=== PATIENT | male | born 1990 | race Caucasian/White ===

== ENCOUNTER → 2016-05-15 | Outpatient (CLI) | payer MEDICARE, OTHER ==
[~2016-05-15] MED LIST: /DULO30CA; /HALO5TAB OR; ABIL10TA OR; AMBI5TAB; DEPA500T OR; DEPA500T2; DEPA500T2 OR; DULO20CA; INVE3TAB2; INVE3TAB2 OR; No Historical Meds; OXYC15TA50; OXYC40TA19; Oxycontin; PERC5TAB8; PROZAC; RISP2TAB12; TOPI50TA; VICO5TAB; XANA2TAB2
[2016-05-15 10:43] LABS: BASO % 0.6 % (0.0-1.0); EOS # 0.4 K/mm3 (0.0-0.50); EOS % 7.3 % (0.0-3.0); LYMPH # 1.9 K/mm3 (1.5-6.5); LYMPH % 28.5 % (24.0-44.0); MEAN CORPUSCULAR HEMOGLOBIN 31.1 pg (27.0-33.0); MEAN CORPUSCULAR HGB CONC 34.6 g/dl (32.0-36.5); MONO # 0.5 K/mm3 (0.0-0.8); MONO % 8.3 % (0.0-5.0); NEUTROPHILS # 3.2 K/mm3 (1.8-7.7); NEUTROPHILS % 52.8 % (36.0-66.0); RED CELL DISTRIBUTION WIDTH 11.5 % (11.5-14.5)
[2016-05-15 11:20] LABS: ALBUMIN 4.2 GM/DL (3.2-5.2); ALBUMIN/GLOBULIN RATIO 1.35 (1.00-1.93); ALKALINE PHOSPHATASE 59 U/L (45-117); ALT/SGPT 27 U/L (12-78); ANION GAP 8 MEQ/L (8-16); AST/SGOT 19 U/L (15-37); BILIRUBIN,TOTAL 0.9 MG/DL (0.2-1.0); BLOOD UREA NITROGEN 12 MG/DL (7-18); CALCIUM LEVEL 9.1 MG/DL (8.5-10.1); CARBON DIOXIDE LEVEL 31 MEQ/L (21-32); CHLORIDE LEVEL 103 MEQ/L (98-107); CHOLESTEROL LEVEL 208 MG/DL (<200); CREATININE FOR GFR 0.91 MG/DL (0.70-1.30); GLOMERULAR FILTRATION RATE > 60.0 (>60); GLUCOSE, FASTING 86 MG/DL (70-105); POTASSIUM SERUM 4.2 MEQ/L (3.5-5.1); SODIUM LEVEL 142 MEQ/L (136-145); TOTAL PROTEIN 7.3 GM/DL (6.4-8.2); TRIGLYCERIDES LEVEL 68 MG/DL (<150)
== END ==
LOC: M LAB 10:01
PROVIDERS: ATTEND Nurse Practitioner Adult Health
DX: E55.9 Vitamin D deficiency, unspecified (principal); E78.1 Pure hyperglyceridemia; F32.9 Major depressive disorder, single episode, unspecified; Z79.899 Other long term (current) drug therapy

== ENCOUNTER 2016-07-03 19:31 | Inpatient (IN) | payer MEDICARE ==
[~2016-07-03] VITALS: Ht 172.7 cm; Wt 98.4 kg
[2016-07-03] MEDS ORDERED: NS 1,000 ML IV ONE (19:45)
[2016-07-03 19:59] LABS: BASO # 0.1 K/mm3 (0.0-0.2); BASO % 0.9 % (0.0-1.0); EOS # 0.3 K/mm3 (0.0-0.50); EOS % 4.8 % (0.0-3.0); LARGE UNSTAINED CELL # 0.2 K/mm3 (0.0-0.4); LARGE UNSTAINED CELL % 2.4 % (0.0-4.0); LYMPH # 2.3 K/mm3 (1.5-6.5); LYMPH % 31.6 % (24.0-44.0); MEAN CORPUSCULAR HGB CONC 34.5 g/dl (32.0-36.5); MEAN CORPUSCULAR VOLUME 92.7 fl (80.0-96.0); MONO # 0.6 K/mm3 (0.0-0.8); MONO % 8.2 % (0.0-5.0); NEUTROPHILS # 3.7 K/mm3 (1.8-7.7); NEUTROPHILS % 52.1 % (36.0-66.0); PLATELET COUNT, AUTOMATED 221 k/mm3 (150-450); RED CELL DISTRIBUTION WIDTH 11.3 % (11.5-14.5); WHITE BLOOD COUNT 7.2 K/mm3 (4.0-10.0)
[2016-07-03] MEDS ORDERED: LORazepam 2 MG/ML VIAL (J2060) IM ONE (20:00)
[2016-07-03] MEDS ORDERED: diphenhydrAMINE INJ 50MG/ML VIAL (J1200) IM ONE (20:00)
[2016-07-03] MEDS ORDERED: HALOPERIDOL 5 MG/ML VIAL (J1630) IM ONE (20:00)
[2016-07-03 20:22] LABS: ALBUMIN 4.2 GM/DL (3.2-5.2); ALBUMIN/GLOBULIN RATIO 1.24 (1.00-1.93); ALKALINE PHOSPHATASE 68 U/L (45-117); ALT/SGPT 36 U/L (12-78); ANION GAP 7 MEQ/L (8-16); AST/SGOT 26 U/L (15-37); BILIRUBIN,DIRECT < 0.1 MG/DL (0.0-0.2); BILIRUBIN,TOTAL 0.5 MG/DL (0.2-1.0); BLOOD UREA NITROGEN 15 MG/DL (7-18); CALCIUM LEVEL 8.8 MG/DL (8.5-10.1); CARBON DIOXIDE LEVEL 28 MEQ/L (21-32); CHLORIDE LEVEL 102 MEQ/L (98-107); CREATININE FOR GFR 1.25 MG/DL (0.70-1.30); GLOMERULAR FILTRATION RATE > 60.0 (>60); GLUCOSE, FASTING 90 MG/DL (70-105); POTASSIUM SERUM 4.2 MEQ/L (3.5-5.1); SODIUM LEVEL 137 MEQ/L (136-145); TOTAL PROTEIN 7.6 GM/DL (6.4-8.2)
[2016-07-03 20:28] LABS: OSMOLALITY SERUM 288 MOSM/KG (275-295)
[2016-07-03 20:34] LABS: ABG BASE EXCESS 1.4 (-2.0-2.0); ABG HCO3 25.2 MEQ/L (22.0-26.0); ABG PARTIAL PRESSURE CO2 37.5 mmHg (35.0-45.0); ABG STANDARD HCO3 25.7 MEQ/L (22.0-26.0); ABG TOTAL CO2 26.4 MEQ/L (22.0-29.0); ABG pH (ARTERIAL) 7.446 UNITS (7.350-7.450)
[2016-07-03 21:18] LABS: METHADONE URINE NEGATIVE (NEGATIVE)
--- NOTE | 2016-07-03 21:30 | REPUSA ---
CT of the head Clinical history: ltered mental status. Comparison: 07/10/2015. Technique: Multiple axial CT images were obtained through the head without administration of contrast . Findings: The ventricles and sulci are symmetric bilaterally. There is no evidence of acute hemorrhag e or infarct. There is no midline shift, mass effect, or extra-axial fluid collection. The osseous st ructures are unremarkable. The visualized paranasal sinuses and mastoid air cells are clear. Impression: Negative study.
[2016-07-04] MEDS: NS 1,000 ML IV SCH ×2 (02:35→11:23)
[2016-07-04] MEDS ORDERED: ONDANSETRON 4 MG TAB (S0181) PO PRN (02:45)
[2016-07-04 05:31] LABS: BASO % 0.8 % (0.0-1.0); EOS # 0.4 K/mm3 (0.0-0.50); EOS % 6.8 % (0.0-3.0); LARGE UNSTAINED CELL # 0.2 K/mm3 (0.0-0.4); LARGE UNSTAINED CELL % 2.5 % (0.0-4.0); LYMPH % 31.7 % (24.0-44.0); MEAN CORPUSCULAR HEMOGLOBIN 31.5 pg (27.0-33.0); MEAN CORPUSCULAR HGB CONC 33.6 g/dl (32.0-36.5); MEAN CORPUSCULAR VOLUME 93.9 fl (80.0-96.0); MONO # 0.4 K/mm3 (0.0-0.8); MONO % 6.1 % (0.0-5.0); NEUTROPHILS # 3.3 K/mm3 (1.8-7.7); NEUTROPHILS % 52.1 % (36.0-66.0); PLATELET COUNT, AUTOMATED 190 k/mm3 (150-450); RED CELL DISTRIBUTION WIDTH 11.4 % (11.5-14.5); WHITE BLOOD COUNT 6.4 K/mm3 (4.0-10.0)
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
[2016-07-04 06:26] LABS: ALBUMIN 3.5 GM/DL (3.2-5.2); ALBUMIN/GLOBULIN RATIO 1.21 (1.00-1.93); ALKALINE PHOSPHATASE 54 U/L (45-117); ALT/SGPT 35 U/L (12-78); ANION GAP 9 MEQ/L (8-16); AST/SGOT 48 U/L (15-37); BLOOD UREA NITROGEN 13 MG/DL (7-18); CALCIUM LEVEL 8.1 MG/DL (8.5-10.1); CARBON DIOXIDE LEVEL 26 MEQ/L (21-32); CHLORIDE LEVEL 105 MEQ/L (98-107); CREATININE FOR GFR 0.95 MG/DL (0.70-1.30); GLOMERULAR FILTRATION RATE > 60.0 (>60); GLUCOSE, FASTING 96 MG/DL (70-105); MAGNESIUM LEVEL 2.3 MG/DL (1.8-2.4); POTASSIUM SERUM 3.8 MEQ/L (3.5-5.1); SODIUM LEVEL 140 MEQ/L (136-145); TOTAL PROTEIN 6.4 GM/DL (6.4-8.2)
[2016-07-04 08:00] VITALS: BP 124/56
[2016-07-04] MEDS ORDERED: ENOXAPARIN 40 MG/0.4 ML SYRINGE (J1650) SC SCH (09:00)
[2016-07-04 10:00] VITALS: BP 113/71
[2016-07-04] MEDS ORDERED: LORazepam 2 MG/ML VIAL (J2060) IM PRN (11:30)
[2016-07-04] MEDS ORDERED: diphenhydrAMINE INJ 50MG/ML VIAL (J1200) IM PRN (11:30)
[2016-07-04] MEDS ORDERED: HALOPERIDOL 5 MG/ML VIAL (J1630) IM PRN (11:30)
--- NOTE | 2016-07-04 12:56 | REP ---
PORTABLE CHEST: HISTORY: Altered mental status. COMPARISON: 11/27/2005. The technique utilized in obtaining the radiograph has magnified the cardiac silhouette and accentuated the interstitial markings. The superior mediastinal structures are midline. The cardiac silhouette is unremarkable in size, shape, and position. The diaphragmatic surfaces of the lungs are regular, and the costophrenic angles are clear. The pulmonary brunner are clear. The imaged osseous structures are intact. IMPRESSION: There is no acute cardiopulmonary disease. Signed by Reginald Rai DO 07/04/2016 01:32 P
[2016-07-04] MEDS ORDERED: ZIPR40CA11 PO (13:18)
[2016-07-04] MEDS ORDERED: BANO25CA PO (13:19)
--- NOTE | 2016-07-04 13:55 | ECGEPIP ---
Stationary ECG Study [facility] Test Date: 2016-07-04 Pat Name: EMILY HUFF Department: Room: [place] [address] Gender: M Tableau Report Developer: : 1990 Requested By: SUDEEP MAHMOOD Order Number: [id number] Reading MD: Geronimo Philip Measurements Intervals [place] Rate: 54 P: 42 [place]: 177 QRS: 37 QRSD: 96 T: 30 QT: 394 QTc: 374 Interpretive Statements SINUS BRADYCARDIA NO PRIOR Electronically Signed On 07-04-2016 13:55:37 EDT by Geronimo Philip
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
--- NOTE | 2016-07-05 14:40 | ECGEPIP ---
Stationary ECG Study [facility] Test Date: 2016-07-03 Pat Name: EMILY HUFF Department: Room: [place] [address] Gender: M C++ Professor: DORA : 1990 Requested By: BONNIE Hurt Order Number: [id number] Reading MD: Yaneth Harrell Measurements Intervals [place] Rate: 95 P: 60 DE: 158 QRS: 36 QRSD: 97 T: 34 QT: 319 QTc: 402 Interpretive Statements SINUS RHYTHM POSSIBLE LEFT ATRIAL ENLARGEMENT NO PRIOR Electronically Signed On 07-05-2016 14:39:54 EDT by Yaneth Harrell
== END 2016-07-04 14:20 | disposition left against medical advice (07) | DRG 948 ==
LOC: EDBD 19:31 → EDSEX 19:31 → M ED 20:06 → M ED INP 07-04 02:35
PROVIDERS: ADMIT Internal Medicine; ATTEND Internal Medicine
DX: R41.82 Altered mental status, unspecified (principal); Z79.899 Other long term (current) drug therapy; F25.9 Schizoaffective disorder, unspecified

== ENCOUNTER → 2017-01-11 | Outpatient (CLI) | payer MEDICARE, MEDICAID ==
[~2017-01-11] MED LIST changes: +BANO25CA PO; +ZIPR40CA11 PO
--- NOTE | 2017-01-11 12:11 | REP ---
Clinical: pain. Technique: AP, lateral, bilateral oblique views right ankle. Findings: No acute fracture or dislocation. Skeletal structures and joint spaces are intact and normal. Ankle mortise appears stable. No subcutaneous emphysema or radiodense foreign body. Impression: Normal right ankle radiograph series. Signed by Izaiah Tompkins MD 01/11/2017 12:04 P
== END ==
LOC: M RAD 11:45
PROVIDERS: ATTEND Family Medicine Addiction Medicine
DX: M25.579 Pain in unspecified ankle and joints of unspecified foot (principal)

== ENCOUNTER 2017-03-07 19:11 | Inpatient (IN) | payer MEDICAID, MEDICARE, OTHER ==
[2017-03-07 19:49] LABS: HEMATOCRIT 40.2 % (42.0-52.0); HEMOGLOBIN 13.8 g/dl (14.0-18.0); MEAN CORPUSCULAR HEMOGLOBIN 30.7 pg (27.0-33.0); MEAN CORPUSCULAR HGB CONC 34.3 g/dl (32.0-36.5); MEAN CORPUSCULAR VOLUME 89.5 fl (80.0-96.0); PLATELET COUNT, AUTOMATED 216 10^3/uL (150-450); RED BLOOD COUNT 4.49 10^6/uL (4.30-6.10); RED CELL DISTRIBUTION WIDTH 11.4 % (11.5-14.5); WHITE BLOOD COUNT 7.4 10^3/uL (4.0-10.0)
[2017-03-07 20:12] LABS: AMPHETAMINES LEVEL URINE NEGATIVE (NEGATIVE); BARBITURATES URINE NEGATIVE (NEGATIVE); BENZODIAZEPINES URINE NEGATIVE (NEGATIVE); CANNABINOIDS URINE POSITIVE (NEGATIVE); COCAINE METABOLITE URINE NEGATIVE (NEGATIVE); METHADONE URINE NEGATIVE (NEGATIVE); OPIATES URINE NEGATIVE (NEGATIVE); PHENCYCLIDINE URINE NEGATIVE (NEGATIVE)
[2017-03-07 20:26] LABS: ACETAMINOPHEN LEVEL < 2.0 UG/ML (10.0-30.0); ALBUMIN/GLOBULIN RATIO 1.38 (1.00-1.93); ALKALINE PHOSPHATASE 54 U/L (45-117); ALT/SGPT 29 U/L (12-78); ANION GAP 8 MEQ/L (8-16); AST/SGOT 24 U/L (7-37); BILIRUBIN,DIRECT < 0.1 MG/DL (0.0-0.2); BILIRUBIN,TOTAL 0.2 MG/DL (0.2-1.0); BLOOD UREA NITROGEN 18 MG/DL (7-18); CALCIUM LEVEL 8.3 MG/DL (8.5-10.1); CARBON DIOXIDE LEVEL 28 MEQ/L (21-32); CHLORIDE LEVEL 107 MEQ/L (98-107); CREATININE FOR GFR 0.84 MG/DL (0.70-1.30); ETHYL ALCOHOL (ETHANOL) < 0.003 % (0.000-0.010); GLOMERULAR FILTRATION RATE > 60.0 (>60); GLUCOSE, FASTING 112 MG/DL (70-105); POTASSIUM SERUM 3.7 MEQ/L (3.5-5.1); SALICYLATE LEVEL 2.5 MG/DL (5.0-30.0); SODIUM LEVEL 143 MEQ/L (136-145); TOTAL PROTEIN 6.9 GM/DL (6.4-8.2)
[2017-03-07] MEDS ORDERED: LORazepam 1 MG TAB PO ×2 (22:00)
[2017-03-07] MEDS ORDERED: traZODone 50 MG TAB PO ×2 (22:00)
[2017-03-07] MEDS ORDERED: ACETAMINOPHEN TAB 650MG DOSE (2X325MG) PO ×2 (22:00)
[2017-03-07] MEDS ORDERED: HALOPERIDOL 5 MG TAB PO ×2 (22:00)
[2017-03-07] MEDS ORDERED: MOM 30ML SUSPENSION UDC PO ×2 (22:00)
[2017-03-07] MEDS ORDERED: MAALOX 30 ML SUSP *UDC PO ×2 (22:00)
[2017-03-08] MEDS: NICOTINE 21MG/24HR 1 EA TRANSDERMAL TD ×2 (08:59)
[2017-03-08] MEDS: INFLUENZA QUADRIVALENT PF VACCINE 0.5ML SYRINGE (90686) IM ×2 (09:00)
[2017-03-08] MEDS ORDERED: LORazepam 1 MG TAB PO ×2 (12:00)
[2017-03-08] MEDS ORDERED: diphenhydrAMINE 50 MG CAP PO ×2 (16:00)
[2017-03-09] MEDS ORDERED: PALIPERIDONE 6 MG ER TAB (INVEGA) PO ×2 (09:00)
== END 2017-03-08 17:35 | disposition home or self-care (01) | DRG 885 ==
LOC: M ED 19:11 → M ED INP 21:48 → M PSY 22:43
DX: F29 Unspecified psychosis not due to a substance or known physiological condition (principal); F32.9 Major depressive disorder, single episode, unspecified; F25.9 Schizoaffective disorder, unspecified; G47.33 Obstructive sleep apnea (adult) (pediatric)

== ENCOUNTER → 2017-03-22 | Outpatient (CLI) | payer MEDICARE, MEDICAID ==
[2017-03-22 09:33] LABS: BASO # 0.1 10^3/uL (0.0-0.2); BASO % 0.8 % (0.0-1.0); EOS # 0.4 10^3/uL (0.0-0.50); EOS % 5.6 % (0.0-3.0); HEMATOCRIT 45.4 % (42.0-52.0); HEMOGLOBIN 15.8 g/dl (14.0-18.0); IMMATURE GRANULOCYTE % 0.5 % (0-0); LYMPH # 1.6 10^3/uL (1.5-6.5); MEAN CORPUSCULAR HEMOGLOBIN 30.6 pg (27.0-33.0); MEAN CORPUSCULAR HGB CONC 34.8 g/dl (32.0-36.5); MEAN CORPUSCULAR VOLUME 87.8 fl (80.0-96.0); MONO # 0.6 10^3/uL (0.0-0.8); MONO % 9.5 % (0.0-5.0); NEUTROPHILS # 3.8 10^3/uL (1.8-7.7); NEUTROPHILS % 58.6 % (36.0-66.0); PLATELET COUNT, AUTOMATED 212 10^3/uL (150-450); RED BLOOD COUNT 5.17 10^6/uL (4.30-6.10); RED CELL DISTRIBUTION WIDTH 11.2 % (11.5-14.5); WHITE BLOOD COUNT 6.6 10^3/uL (4.0-10.0)
[2017-03-22 09:59] LABS: ALBUMIN 4.7 GM/DL (3.2-5.2); ALBUMIN/GLOBULIN RATIO 1.47 (1.00-1.93); ALKALINE PHOSPHATASE 65 U/L (45-117); ALT/SGPT 29 U/L (12-78); ANION GAP 9 MEQ/L (8-16); AST/SGOT 19 U/L (7-37); BILIRUBIN,TOTAL 0.5 MG/DL (0.2-1.0); BLOOD UREA NITROGEN 12 MG/DL (7-18); CALCIUM LEVEL 9.4 MG/DL (8.5-10.1); CARBON DIOXIDE LEVEL 29 MEQ/L (21-32); CHLORIDE LEVEL 101 MEQ/L (98-107); CPK CREATINE PHOSPHOKINASE 172 U/L (39-308); CREATININE FOR GFR 0.92 MG/DL (0.70-1.30); GLOMERULAR FILTRATION RATE > 60.0 (>60); GLUCOSE, FASTING 71 MG/DL (70-105); SODIUM LEVEL 139 MEQ/L (136-145); TOTAL PROTEIN 7.9 GM/DL (6.4-8.2)
[2017-03-25 08:06] LABS: TISSUE TRANSGLUTAMINASE IgA <2 U/mL (0-3)
[2017-03-25 08:06] LABS: IGASUB3 29.6 mg/dL (13.4-97.9); IgA SERUM (part of Subclasses) 166 mg/dL (90-386)
== END ==
LOC: M LAB 08:52
DX: R19.7 Diarrhea, unspecified (principal)
CPT/HCPCS: 82550

== ENCOUNTER 2017-04-02 09:33 | Day surgery (SDC) | payer MEDICARE, MEDICAID ==
[2017-04-02] MEDS: NS 1,000 ML IV (10:29)
[2017-04-02] MEDS ORDERED: LIDOCAINE 2% INJ 100 MG/5 ML SDV (FOR ANES.) As Ordered (11:37)
[2017-04-02] MEDS ORDERED: PROPOFOL 500 MG/50 ML VIAL As Ordered (11:37)
== END 2017-04-02 12:40 | disposition home or self-care (01) ==
LOC: M OPP 09:33
DX: R19.7 Diarrhea, unspecified (principal); R19.4 Change in bowel habit; D12.0 Benign neoplasm of cecum; D12.2 Benign neoplasm of ascending colon; K64.8 Other hemorrhoids; Z87.820 Personal history of traumatic brain injury; M19.90 Unspecified osteoarthritis, unspecified site; F32.9 Major depressive disorder, single episode, unspecified; F41.9 Anxiety disorder, unspecified; G47.8 Other sleep disorders; G47.30 Sleep apnea, unspecified; R06.83 Snoring; F12.10 Cannabis abuse, uncomplicated; Z79.899 Other long term (current) drug therapy; Z80.9 Family history of malignant neoplasm, unspecified
CPT/HCPCS: 45385

== ENCOUNTER → 2017-12-25 | Outpatient (CLI) | payer MEDICARE, MEDICAID ==
[2017-12-25 10:59] LABS: BASO # 0.1 10^3/uL (0.0-0.2); BASO % 0.9 % (0.0-1.0); EOS # 0.4 10^3/uL (0.0-0.50); EOS % 7.7 % (0.0-3.0); HEMATOCRIT 44.1 % (42.0-52.0); HEMOGLOBIN 15.4 g/dl (13.5-17.5); IMMATURE GRANULOCYTE % 0.5 % (0-3.0); LYMPH # 1.5 10^3/uL (1.5-6.5); LYMPH % 26.2 % (24.0-44.0); MEAN CORPUSCULAR HEMOGLOBIN 31.1 pg (27.0-33.0); MEAN CORPUSCULAR HGB CONC 34.9 g/dl (32.0-36.5); MEAN CORPUSCULAR VOLUME 89.1 fl (80.0-96.0); MONO # 0.6 10^3/uL (0.0-0.8); NEUTROPHILS % 53.7 % (36.0-66.0); PLATELET COUNT, AUTOMATED 195 10^3/uL (150-450); RED BLOOD COUNT 4.95 10^6/uL (4.30-6.10); RED CELL DISTRIBUTION WIDTH 11.5 % (11.5-14.5); WHITE BLOOD COUNT 5.6 10^3/uL (4.0-10.0)
[2017-12-25 11:32] LABS: ALBUMIN/GLOBULIN RATIO 1.25 (1.00-1.93); ALKALINE PHOSPHATASE 50 U/L (45-117); ALT/SGPT 27 U/L (12-78); ANION GAP 6 MEQ/L (8-16); AST/SGOT 17 U/L (7-37); BILIRUBIN,TOTAL 0.6 MG/DL (0.2-1.0); BLOOD UREA NITROGEN 13 MG/DL (7-18); CALCIUM LEVEL 8.9 MG/DL (8.5-10.1); CARBON DIOXIDE LEVEL 28 MEQ/L (21-32); CHLORIDE LEVEL 105 MEQ/L (98-107); CHOLESTEROL LEVEL 193 MG/DL (<200); CHOLESTEROL RISK RATIO 3.574 (<5); CREATININE FOR GFR 1.05 MG/DL (0.70-1.30); GLOMERULAR FILTRATION RATE > 60.0 (>60); GLUCOSE, FASTING 95 MG/DL (70-100); HDL CHOLESTEROL 54 MG/DL (>40); LDL CHOLESTEROL 128 MG/DL (<100); NON-HDL-C 139 MG/DL; POTASSIUM SERUM 4.2 MEQ/L (3.5-5.1); SODIUM LEVEL 139 MEQ/L (136-145); THYROID STIMULATING HORMONE 0.747 uIU/ML (0.358-3.740); TOTAL PROTEIN 7.2 GM/DL (6.4-8.2); TRIGLYCERIDES LEVEL 54 MG/DL (<150)
[2017-12-25 14:04] LABS: ESTIMATED AVERAGE GLUCOSE 103 MG/DL (60-110); HEMOGLOBIN A1c 5.2 %
== END ==
LOC: M LAB 10:20
DX: F25.0 Schizoaffective disorder, bipolar type (principal)
CPT/HCPCS: 84443

== ENCOUNTER → 2018-07-01 | Outpatient (REF) | payer OTHER ==
[~2018-07-01] MED LIST changes: -/DULO30CA; -/HALO5TAB OR; +CYMB1CAP4; +CYMB1CAP5; +DIPH50CA PO; -DULO20CA; +HALO1TAB21 OR; +MULT1TAB10 PO; +NICO21PAT TD; +PALI1TAB3 PO; +TRAZO50TA PO; +VITA1TAB48 PO; +VITA200015 PO; +vitamins
== END ==
LOC: M SFHCPLAZ 04:02
DX: R63.5 Abnormal weight gain (principal)

== ENCOUNTER → 2019-03-15 | Outpatient (CLI) | payer MEDICARE, MEDICAID ==
[~2019-03-15] MED LIST changes: +TRAZ1TAB10 PO; -TRAZO50TA PO
--- NOTE | 2019-03-16 00:59 | REP ---
Clinical: Inhaled foreign body . Comparison: 07/03/2016 . Technique: PA and lateral. Findings: The mediastinum and cardiac silhouette are normal. The lung brunner are clear and without acute consolidation, effusion, or pneumothorax. No foreign body is appreciated. The lung volumes are symmetric and normal. The skeletal structures are intact and normal. Impression: 1. No foreign body. No acute cardiopulmonary process. Electronically Signed by Izaiah Tompkins MD 03/16/2019 12:50 A
== END ==
LOC: M RAD 14:01
PROVIDERS: ATTEND Student in an Organized Health Care Education/Training Program
DX: T17.908A Unspecified foreign body in respiratory tract, part unspecified causing other injury, initial encounter (principal)
CPT/HCPCS: 71046; G0463

== ENCOUNTER 2019-10-27 07:11 | Day surgery (SDC) | payer MEDICARE, MEDICAID ==
[~2019-10-27] VITALS: Ht 172.7 cm; Wt 104.6 kg
[2019-10-27] MEDS ORDERED: ABIL1INJ2 IM (07:17)
--- NOTE | 2019-10-27 11:02 | REPVR ---
PROCEDURE INFORMATION: Exam: US Pelvis Limited, Male Exam date and time: 10/27/2019 9:15 AM Age: 29 years old Clinical indication: Injury or trauma; Injury history: Penile injury; Initial encounter; Swelling; Does not apply; Scrotum; Injury date: Today; Additional info: Penile injury, R/O penile FX, tunica injury, urethral injury TECHNIQUE: Imaging protocol: Real-time pelvic ultrasound with image documentation. COMPARISON: No relevant prior studies available. FINDINGS: Images were obtained of the penile shaft. There appears to be disruption of the tunica albuginea of the right corpus cavernosum at the base of the penis, with small irregularly-shaped hypoechoic region within the right corpus cavernosum, and adjacent somewhat echogenic fluid collection which may represent a hematoma measuring 2.3 x 1.4 cm. Evaluation of the urethra is limited, likely measuring 6 mm in dimension. Integrity of the urethra is not able to be evaluated. IMPRESSION: 1. Findings concerning for penile fracture, with apparent disruption of the tunica albuginea of the right corpus cavernosum at the base of the penis, with adjacent suspected hematoma measuring 2.3 x 1.4 cm. 2. Integrity of the urethra is not established on this study. THIS REPORT CONTAINS FINDINGS THAT MAY BE CRITICAL TO PATIENT CARE. The findings were verbally communicated via telephone conference with DENIS HOUSTON at 11:01 AM EDT on 10/27/2019. The findings were acknowledged and understood. Electronically signed by: Ni Couch On 10/27/2019 11:01:51 AM
[2019-10-27 12:03] LABS: BASO % 0.5 % (0.0-1.0); EOS # 0.2 10^3/uL (0.0-0.5); EOS % 2.6 % (0.0-3.0); HEMATOCRIT 44.2 % (42.0-52.0); HEMOGLOBIN 15.2 g/dl (13.5-17.5); LYMPH # 1.3 10^3/uL (1.5-5.0); LYMPH % 14.7 % (24.0-44.0); MEAN CORPUSCULAR HEMOGLOBIN 31.4 pg (27.0-33.0); MEAN CORPUSCULAR HGB CONC 34.4 g/dl (32.0-36.5); MEAN CORPUSCULAR VOLUME 91.3 fl (80.0-96.0); MONO # 0.7 10^3/uL (0.0-0.8); MONO % 8.1 % (0.0-5.0); NEUTROPHILS # 6.5 10^3/uL (1.5-8.5); NEUTROPHILS % 73.5 % (36.0-66.0); PLATELET COUNT, AUTOMATED 189 10^3/uL (150-450); RED BLOOD COUNT 4.84 10^6/uL (4.30-6.10); WHITE BLOOD COUNT 8.8 10^3/uL (4.0-10.0)
[2019-10-27 12:25] LABS: BLOOD UREA NITROGEN 11 MG/DL (7-18); CALCIUM LEVEL 8.8 MG/DL (8.5-10.1); CARBON DIOXIDE LEVEL 28 MEQ/L (21-32); CHLORIDE LEVEL 106 MEQ/L (98-107); CREATININE FOR GFR 0.98 MG/DL (0.70-1.30); GLOMERULAR FILTRATION RATE > 60.0 (>60); GLUCOSE, FASTING 90 MG/DL (70-100); POTASSIUM SERUM 4.2 MEQ/L (3.5-5.1); SODIUM LEVEL 140 MEQ/L (136-145)
[2019-10-27] MEDS ORDERED: LIDOCAINE 2% 100MG/5ML SDV (FOR ANES.) As Ordered ONE (14:08)
[2019-10-27] MEDS ORDERED: propofoL 200 MG/20 ML VIAL As Ordered ONE (14:08)
[2019-10-27] MEDS ORDERED: ONDANSETRON 4MG/2ML VIAL As Ordered ONE ×2 (14:08→17:50)
[2019-10-27] MEDS ORDERED: dexameTHASONE 4 MG/ML 1ML VIAL (J1100 PER 1MG) As Ordered ONE (14:08)
[2019-10-27] MEDS ORDERED: fentaNYL 100 MCG/2 ML INJECTION (J3010) As Ordered ONE (14:09)
[2019-10-27] MEDS ORDERED: MIDAZOLAM INJ 2MG/2ML VIAL (J2250 PER 1MG) As Ordered ONE (14:09)
[2019-10-27] MEDS ORDERED: BACITRACIN OINTMENT 30GM TUBE As Ordered ONE (14:16)
--- NOTE | 2019-10-27 14:59 | SMCUROLCON ---
Urology Consultation General Date of Consultation 10/27/19 Reason For Consultation This patient is seen for Penile Fracture. History of Present Illness This is a 29 y/o M w/ a hx of TBI, who presented to the ER this morning w/ a penile injury. He notes that he noticed a loud pop and sudden detumescence whi le masturbating. He denied any blood from his urethra. He was able to void prior to me seeing him and had no difficulty w/ that. He noted mild penile discomfort. He has no previous urologic history. Past Medical History Medical History see HPI Medications Current Medications Current Medications Medications (Trade) Dose Ordered Sig/Willa Route PRN Reason Start Time Stop Time Status Last Admin Dose Admin Home Med (Med Rec Complete!) ASDIRECTED XX 10/27/19 11:45 10/27/19 11:41 DC Allergies Allergies: Coded Allergies: No Known Allergies (Verified Allergy, Unknown, 10/27/19) Review of Systems Constitutional: Denies: Fever, Chills, Sweats, Weakness, Malaise Pulmonary: Denies: Dyspnea, Cough Cardiovascular: Denies Chest Pain, Denies Palpitations Gastrointestinal: Denies: Nausea, Vomiting, Abdominal Pain Genitourinary: Reports: Other Symptoms (mild penile pain and swelling) Physical Examination General Exam: Alert, Cooperative, No Acute Distress Chest Exam: Clear to auscultation Heart Exam: Rate Normal, Regular Rhythm Male Exam circumcised phallus w/o lesions; edema and ecchymosis at base of penis on dorsal aspect - mildly tender to touch; b/l testicles descended and normal in size - no palpable masses Skin Exam: Nl turgor and temperature Neuro Exam: Normal Speech Psych Exam: Mental status NL, Mood NL Vital Signs/I&O Vital Signs Date Time Temp Pulse Resp B/P (MAP) Pulse Ox O2 Delivery O2 Flow Rate FiO2 10/27/19 12:52 96.4 80 18 122/62 (82) 98 Room Air Laboratory Data 24H Labs Laboratory Tests 2 10/27/19 07:50: Urine Color YELLOW, Urine Appearance CLEAR, Urine pH 6.0, Urine Specific [place] 1.016, Urine Protein NEGATIVE, Urine Glucose (UA) NEGATIVE, Urine Ketones NEGATIVE, Urine Blood NEGATIVE, Urine Nitrite NEGATIVE, Urine Bilirubin NEGATIVE, Urine Urobilinogen 0.2, Urine Leukocyte Esterase NEGATIVE, Urine WBC (Auto) 1, Urine RBC (Auto) 2, Urine Hyaline Casts (Auto) 0, Urine Bacteria (Auto) NEGATIVE, Urine Squamous Epithelial Cells 0, Urine Mucus (Auto) SMALL, Urine Sperm (Auto) 10/27/19 11:20: Immature Granulocyte % (Auto) 0.6, Neutrophils (%) (Auto) 73.5H, Lymphocytes (%) (Auto) 14.7L, Monocytes (%) (Auto) 8.1H, Eosinophils (%) (Auto) 2.6, Basophils (%) (Auto) 0.5, Neutrophils # (Auto) 6.5, Lymphocytes # (Auto) 1.3L, Monocytes # (Auto) 0.7, Eosinophils # (Auto) 0.2, Basophils # (Auto) 0.0, Nucleated Red Blood Cells % (auto) 0.0, Anion Gap 6L, Glomerular Filtration Rate > 60.0, C alcium Level 8.8 10/27/19 11:28: Coronavirus (COVID-19)(PCR) NEGATIVE CBC/BMP Laboratory Tests 10/27/19 11:20 Assessment This is a 29 y/o M w/ a penile injury. A penile US was done which confirms a penile fracture. I recommended that we take him to the OR now for repair. After a discussion of the risks and benefits, informed consent was signed. Plan - informed consent signed for repair of penile fracture - 2g ancef OCOR - NPO - to OR now SHARONA HERNANDEZ MD Oct 27, 2019 13:06
[2019-10-27] MEDS ORDERED: ceFAZolin SOD 2 GM in IV 1 EA IV ONE (15:00)
[2019-10-27] MEDS ORDERED: ceFAZolin 2 GM/D5W 50 ML IV BAG (J0690 PER 500MG) As Ordered ONE (15:02)
[2019-10-27] MEDS ORDERED: HYDROmorphone HCL 2 MG/ML 1ML VIAL (J1170) As Ordered ONE (15:49)
--- NOTE | 2019-10-27 17:41 | ROOPDOC ---
[facility] Report Of Operation Report of Operation DATE OF PROCEDURE: 10/27/19 PREPROCEDURE DIAGNOSES: Fracture of Corpus Cavernosum Penis. POSTPROCEDURE DIAGNOSES: Fracture of Corpus Cavernosum Penis. PROCEDURE: Repair of Traumatic Corporeal Tear. SURGEON: Sharona Hernandez MD ALTERATION WORKER: None ANESTHESIA: General OPERATIVE INDICATIONS: This is a 29 year old male who presented to the emergency room this morning with concern for a penile fracture. A penile US confirmed this f inding. He was taken to the operating room today for repair. DESCRIPTION OF PROCEDURE: The patient was brought to the operating room and general anesthesia was induced. Prophylactic antibiotics were infused. He was then placed in the supine position and prepped and draped in the usual sterile fashion. A circumferential incision was made approximately 1 cm proximal to the edge of the glans penis. The penis was then degloved using blunt dissection and electrocautery. At the base of the penis on the right a small hematoma was present. When the penis was degloved to the base of the penis, there was an approximately 2-3cm tear in the tunica albuginea. This was explored and the clot was removed. The edges were debrided using a metzenbaum scissors. The edges were then reapproximated using interrupted #3-0 PDS sutures. The wound was then again irrigated with sterile saline and there was no more bleeding from the corpus cavernosum. The cut eges of the skin were reapproximated with interrupted sutures of 3-0 chromic. Bacitracin was applied to the skin incision. The incision line was then dressed with Ricky, followed by a Coban dressing. This marked the conclusion of the procedure. The patient was then awakened from anesthesia and transported to the recovery room in stable condition. ESTIMATED BLOOD LOSS: Approximately 20 mL. COMPLICATIONS: None. SPECIMENS: None. PLAN: We will keep the dressings on for 3 days. The patient will follow up in clinic in approximately 2 weeks for a postoperative check. SHARONA HERNANDEZ MD Oct 27, 2019 17:41
[2019-10-27] MEDS ORDERED: OXYC1TAB23 PO (17:45)
[2019-10-27] MEDS ORDERED: KEFL500C17 PO (17:45)
[2019-10-27] MEDS ORDERED: METOCLOPRAMIDE INJ 10MG/2ML VIAL (J2765 PER 1) As Ordered ONE (18:09)
[2019-10-27] MEDS ORDERED: ONDANSETRON 4MG/2ML VIAL IV PRN (18:15)
[2019-10-27] MEDS ORDERED: fentaNYL 100 MCG/2 ML INJECTION (J3010) IV PRN (18:15)
[2019-10-27] MEDS ORDERED: LR 1,000 ML IV SCH (18:15)
[2019-10-27] MEDS ORDERED: PERCOCET 5MG/325MG TAB PO PRN ×2 (18:15)
[2019-10-27] MEDS ORDERED: METOCLOPRAMIDE INJ 10MG/2ML VIAL (J2765 PER 1) IV SCH (18:30)
[2019-10-27 18:53] VITALS: BP 149/76
== END 2019-10-27 19:02 | disposition home or self-care (01) ==
LOC: M ED 07:11 → M SDC 07:12
PROVIDERS: ATTEND Urology
DX: S39.840A Fracture of corpus cavernosum penis, initial encounter (principal); F31.9 Bipolar disorder, unspecified; G47.30 Sleep apnea, unspecified; F17.218 Nicotine dependence, cigarettes, with other nicotine-induced disorders; Z87.820 Personal history of traumatic brain injury; F20.9 Schizophrenia, unspecified; F52.9 Unspecified sexual dysfunction not due to a substance or known physiological condition; Z79.899 Other long term (current) drug therapy; Y93.89 Activity, other specified; Y92.89 Other specified places as the place of occurrence of the external cause
CPT/HCPCS: 54440; 76857; 80048; 81001; 85025; 99284; J0690; J1100; J1170; J2250; J2405; J2765; J3010; U0002

== ENCOUNTER → 2019-11-10 | Outpatient (CLI) | payer MEDICARE, MEDICAID ==
[~2019-11-10] MED LIST changes: +ABIL1INJ2 IM; +KEFL500C17 PO; +OXYC1TAB23 PO
--- NOTE | 2019-11-10 15:53 | REPVR ---
PROCEDURE INFORMATION: Exam: XR Left Hand Exam date and time: 11/10/2019 3:35 PM Age: 29 years old Clinical indication: Injury or trauma; Fall; Initial encounter; Sprain or strain; Hand; Left; Additional info: L hand injury R/O FX TECHNIQUE: Imaging protocol: XR Left hand. Views: 3 or more views. COMPARISON: No relevant prior studies available. FINDINGS: Bones/joints: There is a comminuted fracture of the shaft of the left 3rd metacarpal with extension to the base and palmar angulation of the distal fracture fragment. Soft tissues: Soft tissue swelling. IMPRESSION: Comminuted fracture of the shaft of the 3rd metacarpal with palmar angulation of the distal fracture fragment. The fractures extend to the base of the metacarpal and there may be intra-articular extension. Electronically signed by: Lizeth Sandhu On 11/10/2019 15:53:17 PM
== END ==
LOC: M RAD 15:16
PROVIDERS: ATTEND Physician Assistant Medical
DX: S62.323A Displaced fracture of shaft of third metacarpal bone, left hand, initial encounter for closed fracture (principal); W19.XXXA Unspecified fall, initial encounter; Y92.9 Unspecified place or not applicable; Y99.9 Unspecified external cause status; Y93.9 Activity, unspecified

== ENCOUNTER → 2019-11-29 | Outpatient (REF) | payer MEDICARE, MEDICAID ==
[2019-11-29 13:22] LABS: BASO % 0.5 % (0.0-1.0); EOS # 0.4 10^3/uL (0.0-0.5); EOS % 6.7 % (0.0-3.0); HEMATOCRIT 44.4 % (42.0-52.0); HEMOGLOBIN 14.8 g/dl (13.5-17.5); LYMPH # 1.4 10^3/uL (1.5-5.0); LYMPH % 25.5 % (24.0-44.0); MEAN CORPUSCULAR HGB CONC 33.3 g/dl (32.0-36.5); MEAN CORPUSCULAR VOLUME 92.9 fl (80.0-96.0); MONO # 0.5 10^3/uL (0.0-0.8); MONO % 9.8 % (0.0-5.0); NEUTROPHILS # 3.1 10^3/uL (1.5-8.5); NEUTROPHILS % 56.6 % (36.0-66.0); PLATELET COUNT, AUTOMATED 199 10^3/uL (150-450); RED BLOOD COUNT 4.78 10^6/uL (4.30-6.10); WHITE BLOOD COUNT 5.5 10^3/uL (4.0-10.0)
[2019-11-29 14:37] LABS: ALBUMIN 4.2 GM/DL (3.2-5.2); ALT/SGPT 49 U/L (12-78); BILIRUBIN,TOTAL 0.5 MG/DL (0.2-1.0); BLOOD UREA NITROGEN 15 MG/DL (7-18); CALCIUM LEVEL 9.4 MG/DL (8.5-10.1); CARBON DIOXIDE LEVEL 28 MEQ/L (21-32); CHLORIDE LEVEL 105 MEQ/L (98-107); CHOLESTEROL LEVEL 222 MG/DL (<200); CHOLESTEROL RISK RATIO 4.036 (<5); CREATININE FOR GFR 1.05 MG/DL (0.70-1.30); GLOMERULAR FILTRATION RATE > 60.0 (>60); GLUCOSE, FASTING 80 MG/DL (70-100); HDL CHOLESTEROL 55 MG/DL (>40); LDL CHOLESTEROL 136 MG/DL (<100); NON-HDL-C 167 MG/DL; POTASSIUM SERUM 4.5 MEQ/L (3.5-5.1); SODIUM LEVEL 140 MEQ/L (136-145); THYROID STIMULATING HORMONE 0.875 uIU/ML (0.358-3.740); TOTAL PROTEIN 7.2 GM/DL (6.4-8.2); TRIGLYCERIDES LEVEL 154 MG/DL (<150)
[2019-11-29 15:18] LABS: HEMOGLOBIN A1c 4.9 %
== END ==
LOC: M LAB REF 12:17
PROVIDERS: ATTEND Physician Assistant
DX: Z00.00 Encounter for general adult medical examination without abnormal findings (principal); E66.09 Other obesity due to excess calories; Z68.39 Body mass index [BMI] 39.0-39.9, adult; Z79.899 Other long term (current) drug therapy

== ENCOUNTER → 2020-06-15 | Outpatient (CLI) | payer MEDICARE, MEDICAID | LOC: M LABSMTC 09:37 | PROVIDERS: ATTEND Anesthesiology | DX: Z20.828 Contact with and (suspected) exposure to other viral communicable diseases (principal); Z11.59 Encounter for screening for other viral diseases ==

== ENCOUNTER → 2020-08-01 | Outpatient (REF) | payer MEDICARE, MEDICAID ==
[~2020-08-01] MED LIST changes: -BANO25CA PO; +DIPH-319 PO
[2020-08-01 13:22] LABS: BASO # 0.1 10^3/uL (0.0-0.2); BASO % 0.9 % (0.0-1.0); EOS # 0.4 10^3/uL (0.0-0.5); EOS % 6.8 % (0.0-3.0); HEMATOCRIT 43.4 % (42.0-52.0); HEMOGLOBIN 14.3 g/dl (13.5-17.5); LYMPH # 1.6 10^3/uL (1.5-5.0); LYMPH % 26.8 % (24.0-44.0); MEAN CORPUSCULAR HEMOGLOBIN 29.5 pg (27.0-33.0); MEAN CORPUSCULAR HGB CONC 32.9 g/dl (32.0-36.5); MEAN CORPUSCULAR VOLUME 89.7 fl (80.0-96.0); MONO # 0.7 10^3/uL (0.0-0.8); MONO % 12.6 % (2.0-8.0); NEUTROPHILS # 3.1 10^3/uL (1.5-8.5); NEUTROPHILS % 52.4 % (36.0-66.0); PLATELET COUNT, AUTOMATED 220 10^3/uL (150-450); RED BLOOD COUNT 4.84 10^6/uL (4.30-6.10); WHITE BLOOD COUNT 5.9 10^3/uL (4.0-10.0)
[2020-08-01 13:52] LABS: ERYTHROCYTE SEDIMENTATION RATE 5 mm/hr (0-15)
[2020-08-01 14:10] LABS: ALBUMIN 4.2 GM/DL (3.2-5.2); ALT/SGPT 46 U/L (12-78); BILIRUBIN,TOTAL 0.5 MG/DL (0.2-1.0); BLOOD UREA NITROGEN 18 MG/DL (7-18); CALCIUM LEVEL 9.5 MG/DL (8.5-10.1); CARBON DIOXIDE LEVEL 29 MEQ/L (21-32); CHLORIDE LEVEL 108 MEQ/L (98-107); CREATININE FOR GFR 1.09 MG/DL (0.70-1.30); GLOMERULAR FILTRATION RATE > 60.0 (>60); GLUCOSE, FASTING 104 MG/DL (70-100); POTASSIUM SERUM 4.7 MEQ/L (3.5-5.1); RHEUMATOID FACTOR QUANT < 10.0 IU/ML (<15.0); SODIUM LEVEL 142 MEQ/L (136-145); TOTAL PROTEIN 7.2 GM/DL (6.4-8.2)
== END ==
LOC: M SFHCPLAZ 09:43
PROVIDERS: ATTEND Physician Assistant
DX: R07.89 Other chest pain (principal); M25.50 Pain in unspecified joint; Z79.899 Other long term (current) drug therapy

== ENCOUNTER → 2020-08-01 | Outpatient (CLI) | payer MEDICARE, MEDICAID ==
--- NOTE | 2020-08-01 10:08 | REPPI ---
INDICATION: R07.89 RIGHT SIDED CHEST WALL PAIN COMPARISON: 03/15/2019 TECHNIQUE: PA and lateral. FINDINGS: The mediastinum and cardiac silhouette are normal. The lung brunner are clear and without acute consolidation, effusion, or pneumothorax. The skeletal structures are intact and normal. IMPRESSION: No acute cardiopulmonary process. <Electronically signed by Izaiah Tompkins > 08/01/20 100
== END ==
LOC: M PLAIMG 09:43
PROVIDERS: ATTEND Physician Assistant
DX: R07.89 Other chest pain (principal); M25.50 Pain in unspecified joint; Z79.899 Other long term (current) drug therapy
CPT/HCPCS: 36415; 71046; 80053; 85025; 85652; 86140; 86431; G0463

== ENCOUNTER → 2021-01-13 | Outpatient (REF) | payer MEDICARE, MEDICAID | LOC: M SFHCPLAZ 15:46 | PROVIDERS: ATTEND Family Medicine | DX: Z79.899 Other long term (current) drug therapy (principal); Z68.31 Body mass index [BMI] 31.0-31.9, adult ==

== ENCOUNTER → 2021-01-16 | Outpatient (CLI) | payer MEDICARE, MEDICAID ==
[2021-01-16 11:33] LABS: CHOLESTEROL LEVEL 213 MG/DL (<200); CHOLESTEROL RISK RATIO 4.531 (<5); HDL CHOLESTEROL 47 MG/DL (>40); LDL CHOLESTEROL 146 MG/DL (<100); NON-HDL-C 166 MG/DL; TRIGLYCERIDES LEVEL 102 MG/DL (<150)
[2021-01-16 13:00] LABS: HEMOGLOBIN A1c 5.3 %
== END ==
LOC: M LAB 10:09
PROVIDERS: ATTEND Student in an Organized Health Care Education/Training Program
DX: E66.9 Obesity, unspecified (principal); Z68.31 Body mass index [BMI] 31.0-31.9, adult; Z79.899 Other long term (current) drug therapy

== ENCOUNTER → 2021-08-08 | Outpatient (REF) | payer MEDICARE, MEDICAID | LOC: M SFHCPLAZ 16:07 | PROVIDERS: ATTEND Family Medicine | DX: Z11.3 Encounter for screening for infections with a predominantly sexual mode of transmission (principal) ==

== ENCOUNTER → 2021-08-11 | Outpatient (CLI) | payer MEDICARE, MEDICAID ==
[2021-08-11 12:24] LABS: HIV 1&2 SCREEN CENTAUR NEGATIVE (NEGATIVE)
[2021-08-11 12:58] LABS: GC DNA AMPLIFICATION NEGATIVE (NEGATIVE)
== END ==
LOC: M PLALAB 08:44
PROVIDERS: ATTEND Student in an Organized Health Care Education/Training Program
DX: Z11.3 Encounter for screening for infections with a predominantly sexual mode of transmission (principal)

== ENCOUNTER 2021-08-30 15:42 | Emergency (ER) | payer MEDICARE, MEDICAID ==
[~2021-08-30] VITALS: Ht 172.7 cm; Wt 102.3 kg
[2021-08-30 16:55] VITALS: BP 136/80
== END 2021-08-30 16:57 | disposition home or self-care (01) ==
LOC: M ED 15:42
DX: R06.9 Unspecified abnormalities of breathing (principal); M54.50 Low back pain, unspecified; K21.9 Gastro-esophageal reflux disease without esophagitis; R51.9 Headache, unspecified; F41.9 Anxiety disorder, unspecified; G47.33 Obstructive sleep apnea (adult) (pediatric); F17.200 Nicotine dependence, unspecified, uncomplicated; F10.20 Alcohol dependence, uncomplicated; Z87.820 Personal history of traumatic brain injury; Z79.899 Other long term (current) drug therapy

== ENCOUNTER → 2022-01-26 | Outpatient (REF) | LOC: M PLAIMG 11:19 | PROVIDERS: ATTEND Internal Medicine | DX: M79.642 Pain in left hand (principal); M25.511 Pain in right shoulder ==

== ENCOUNTER → 2022-02-17 | Outpatient (REF) | payer MEDICARE, MEDICAID ==
[2022-02-17 18:54] LABS: CHOLESTEROL RISK RATIO 4.12 (<5); HDL CHOLESTEROL 47.7 MG/DL (>40); LDL CHOLESTEROL 123.5 MG/DL (<100)
== END ==
LOC: M LAB REF 16:41
PROVIDERS: ATTEND Nurse Practitioner Family
DX: E66.3 Overweight (principal)

== ENCOUNTER → 2022-05-31 | Outpatient (REF) | payer MEDICARE | LOC: M LAB REF 19:14 | PROVIDERS: ATTEND Physician Assistant | DX: J02.9 Acute pharyngitis, unspecified (principal) ==

== ENCOUNTER → 2022-06-22 | Outpatient (REF) | payer MEDICARE ==
[2022-06-22 14:02] LABS: CHOLESTEROL RISK RATIO 3.41 (<5); HDL CHOLESTEROL 58.2 MG/DL (>40); LDL CHOLESTEROL 94.8 MG/DL (<100); NON-HDL-C 140.8 MG/DL
== END ==
LOC: M LAB REF 12:52
PROVIDERS: ATTEND Nurse Practitioner Family
DX: R79.89 Other specified abnormal findings of blood chemistry (principal)

== ENCOUNTER 2022-07-13 12:26 | Emergency (ER) | payer MEDICARE ==
[~2022-07-13] VITALS: Ht 172.7 cm; Wt 118.5 kg
[2022-07-13] MEDS ORDERED: NAPR-837 PO (14:27)
[2022-07-13 14:39] VITALS: BP 159/82
== END 2022-07-13 14:41 | disposition home or self-care (01) ==
LOC: M ED 12:26
DX: M94.0 Chondrocostal junction syndrome [Tietze] (principal); G47.33 Obstructive sleep apnea (adult) (pediatric); K21.9 Gastro-esophageal reflux disease without esophagitis; F31.9 Bipolar disorder, unspecified; F19.10 Other psychoactive substance abuse, uncomplicated; F10.10 Alcohol abuse, uncomplicated; F17.220 Nicotine dependence, chewing tobacco, uncomplicated; F12.10 Cannabis abuse, uncomplicated; Z79.899 Other long term (current) drug therapy; Z79.1 Long term (current) use of non-steroidal anti-inflammatories (NSAID)

== ENCOUNTER → 2022-10-14 | Outpatient (REF) | payer MEDICARE, MEDICAID ==
[~2022-10-14] MED LIST changes: +NAPR-837 PO
[2022-10-14 18:05] LABS: CHOLESTEROL RISK RATIO 5.05 (<5); HDL CHOLESTEROL 45.9 MG/DL (>40); LDL CHOLESTEROL 153.1 MG/DL (<100); NON-HDL-C 186.1 MG/DL
== END ==
LOC: M LAB REF 16:37
PROVIDERS: ATTEND Nurse Practitioner Family
DX: E78.5 Hyperlipidemia, unspecified (principal)

== ENCOUNTER → 2023-02-05 | Outpatient (CLI) | payer MEDICARE, MEDICAID ==
[~2023-02-05] MED LIST changes: -DIPH-319 PO; +DIPH-429 PO; +ISOVUE-370 76% 100ML VIAL As Ordered ONE
== END ==
LOC: M RAD 09:29
PROVIDERS: ATTEND Otolaryngology
DX: J32.0 Chronic maxillary sinusitis (principal); J32.2 Chronic ethmoidal sinusitis; J32.3 Chronic sphenoidal sinusitis; R22.1 Localized swelling, mass and lump, neck
CPT/HCPCS: 70491; Q9967

== ENCOUNTER → 2023-02-08 | Outpatient (REF) | payer MEDICARE, MEDICAID ==
[~2023-02-08] MED LIST changes: -ISOVUE-370 76% 100ML VIAL As Ordered ONE
[2023-02-08 13:32] LABS: CHOLESTEROL RISK RATIO 4.52 (<5); HDL CHOLESTEROL 55.3 MG/DL (>40); LDL CHOLESTEROL 139.7 MG/DL (<100); NON-HDL-C 194.7 MG/DL
== END ==
LOC: M LAB REF 11:23
PROVIDERS: ATTEND Nurse Practitioner Family
DX: E78.5 Hyperlipidemia, unspecified (principal)

== ENCOUNTER → 2023-05-05 | Outpatient (REF) | payer MEDICARE, MEDICAID ==
[2023-05-05 15:13] LABS: CHOLESTEROL RISK RATIO 4.96 (<5); HDL CHOLESTEROL 42.1 MG/DL (>40); LDL CHOLESTEROL 123.5 MG/DL (<100); NON-HDL-C 166.9 MG/DL
== END ==
LOC: M LAB REF 12:38
PROVIDERS: ATTEND Nurse Practitioner Family
DX: E78.5 Hyperlipidemia, unspecified (principal)

== ENCOUNTER → 2023-08-11 | Outpatient (REF) | payer MEDICARE, MEDICAID ==
[2023-08-11 12:47] LABS: ALBUMIN 4.2 G/DL (3.2-5.2); ALKALINE PHOSPHATASE 67 U/L (46-116); ALT/SGPT 81 U/L (7.0-40); AST/SGOT 35 U/L (<34); BILIRUBIN,TOTAL 1.4 MG/DL (0.3-1.2); BLOOD UREA NITROGEN 15 MG/DL (9-23); CALCIUM LEVEL 10.1 MG/DL (8.5-10.1); CARBON DIOXIDE LEVEL 31 MMOL/L (20-31); CHLORIDE LEVEL 102 MMOL/L (98-107); CHOLESTEROL LEVEL 234 MG/DL (<200); CHOLESTEROL RISK RATIO 5.42 (<5); CREATININE FOR GFR 1.08 MG/DL (0.70-1.30); GLOMERULAR FILTRATION RATE > 60.0 (>60); GLUCOSE, FASTING 100 MG/DL (60-100); HDL CHOLESTEROL 43.1 MG/DL (>40); LDL CHOLESTEROL 130.1 MG/DL (<100); NON-HDL-C 190.9 MG/DL; POTASSIUM SERUM 4.4 MMOL/L (3.5-5.1); SODIUM LEVEL 140 MMOL/L (136-145); TRIGLYCERIDES LEVEL 304 MG/DL (<150)
[2023-08-11 13:46] LABS: GC DNA AMPLIFICATION NEGATIVE (NEGATIVE)
== END ==
LOC: M LAB REF 11:23
PROVIDERS: ATTEND Nurse Practitioner Family
DX: Z11.3 Encounter for screening for infections with a predominantly sexual mode of transmission (principal); E78.5 Hyperlipidemia, unspecified

== ENCOUNTER → 2023-12-15 | Outpatient (REF) | payer MEDICARE, MEDICAID ==
[~2023-12-15] MED LIST changes: +INVE117I IM
[2023-12-15 14:16] LABS: BASO # 0.1 10^3/uL (0.0-0.2); BASO % 0.7 % (0.0-1.0); EOS # 0.3 10^3/uL (0.0-0.5); EOS % 4.4 % (0.0-3.0); HEMOGLOBIN 15.4 g/dl (13.5-17.5); LYMPH # 2.1 10^3/uL (1.5-5.0); LYMPH % 30.6 % (24.0-44.0); MEAN CORPUSCULAR HEMOGLOBIN 30.9 pg (27.0-33.0); MEAN CORPUSCULAR HGB CONC 34.2 g/dl (32.0-36.5); MEAN CORPUSCULAR VOLUME 90.2 fl (80.0-96.0); MONO # 0.8 10^3/uL (0.0-0.8); NEUTROPHILS # 3.5 10^3/uL (1.5-8.5); NEUTROPHILS % 51.6 % (36.0-66.0); PLATELET COUNT, AUTOMATED 224 10^3/uL (150-450); RED BLOOD COUNT 4.99 10^6/uL (4.30-6.10); WHITE BLOOD COUNT 6.8 10^3/uL (4.0-10.0)
[2023-12-15 14:18] LABS: ALBUMIN 4.2 G/DL (3.2-5.2); ALKALINE PHOSPHATASE 72 U/L (46-116); ALT/SGPT 84 U/L (7.0-40); AST/SGOT 27 U/L (<34); BILIRUBIN,TOTAL 0.6 MG/DL (0.3-1.2); BLOOD UREA NITROGEN 12 MG/DL (9-23); CALCIUM LEVEL 9.6 MG/DL (8.5-10.1); CARBON DIOXIDE LEVEL 29 MMOL/L (20-31); CHLORIDE LEVEL 103 MMOL/L (98-107); CHOLESTEROL LEVEL 233 MG/DL (<200); CREATININE FOR GFR 0.86 MG/DL (0.70-1.30); GLOMERULAR FILTRATION RATE > 60.0 (>60); GLUCOSE, FASTING 103 MG/DL (60-100); HDL CHOLESTEROL 45.6 MG/DL (>40); LDL CHOLESTEROL 118.4 MG/DL (<100); MAGNESIUM LEVEL 1.9 MG/DL (1.8-2.4); NON-HDL-C 187.4 MG/DL; POTASSIUM SERUM 4.2 MMOL/L (3.5-5.1); SODIUM LEVEL 138 MMOL/L (136-145); THYROID STIMULATING HORMONE 1.981 uIU/ML (0.55-4.78); TOTAL 25(OH) VITAMIN D 20.8 NG/ML (20.0-100.0); TOTAL PROTEIN 7.2 G/DL (5.7-8.2); TRIGLYCERIDES LEVEL 345 MG/DL (<150)
[2023-12-15 14:54] LABS: HEMOGLOBIN A1c 5.4 % (4.0-6.0)
== END ==
LOC: M LAB REF 12:10
PROVIDERS: ATTEND Nurse Practitioner Family
DX: E78.5 Hyperlipidemia, unspecified (principal); E55.9 Vitamin D deficiency, unspecified; E66.01 Morbid (severe) obesity due to excess calories; Z79.899 Other long term (current) drug therapy

== ENCOUNTER → 2023-12-24 | Outpatient (CLI) | payer MEDICARE, MEDICAID | LOC: M RAD 10:35 | PROVIDERS: ATTEND Nurse Practitioner Family | DX: Z01.818 Encounter for other preprocedural examination (principal) ==

== ENCOUNTER 2024-01-20 08:34 | Day surgery (SDC) | payer MEDICARE, MEDICAID ==
[~2024-01-20] VITALS: Ht 172.7 cm; Wt 124.7 kg
[~2024-01-20 08:34] MED LIST changes: +ATOR1TAB19 PO; +FLUTISP; +NS 250 ML IV ONE; +VITA200032 PO; -ZIPR40CA11 PO; +ZIPR40CA21 PO
[2024-01-20] MEDS ORDERED: propofoL 200 MG/20 ML VIAL As Ordered ONE (09:19)
[2024-01-20] MEDS ORDERED: LIDOCAINE 2% 100MG/5ML SDV (FOR ANES.) As Ordered ONE (09:19)
[2024-01-20 09:35] VITALS: TEMP 97.4
[2024-01-20 09:58] VITALS: BP 129/69; O2SAT 97
== END 2024-01-20 10:02 | disposition home or self-care (01) ==
LOC: M OPP 08:34
PROVIDERS: ATTEND Internal Medicine Gastroenterology
DX: Z12.11 Encounter for screening for malignant neoplasm of colon (principal); K63.5 Polyp of colon; K64.8 Other hemorrhoids; Z86.0100 Personal history of colon polyps, unspecified; E78.00 Pure hypercholesterolemia, unspecified; G47.30 Sleep apnea, unspecified; Z79.899 Other long term (current) drug therapy; Z72.0 Tobacco use; E55.9 Vitamin D deficiency, unspecified

== ENCOUNTER → 2024-02-21 | Outpatient (CLI) | payer MEDICARE, MEDICAID ==
[~2024-02-21] MED LIST changes: -NS 250 ML IV ONE
== END ==
LOC: M RAD 09:19
PROVIDERS: ATTEND Nurse Practitioner Family
DX: M54.6 Pain in thoracic spine (principal); M25.522 Pain in left elbow; M25.562 Pain in left knee; J02.9 Acute pharyngitis, unspecified

== ENCOUNTER → 2024-05-04 | Outpatient (REF) | payer MEDICARE, MEDICAID ==
[2024-05-04 13:49] LABS: ALBUMIN 4.1 G/DL (3.2-5.2); ALKALINE PHOSPHATASE 71 U/L (40-129); ALT/SGPT 116 U/L (7.0-40); AST/SGOT 50 U/L (<34); BLOOD UREA NITROGEN 13 MG/DL (9-23); CALCIUM LEVEL 9.5 MG/DL (8.5-10.1); CARBON DIOXIDE LEVEL 30 MMOL/L (20-31); CHLORIDE LEVEL 100 MMOL/L (98-107); CHOLESTEROL LEVEL 303 MG/DL (<200); CHOLESTEROL RISK RATIO 6.13 (<5); CREATININE FOR GFR 0.97 MG/DL (0.70-1.30); GLOMERULAR FILTRATION RATE > 60.0 (>60); GLUCOSE, FASTING 105 MG/DL (60-100); HDL CHOLESTEROL 49.4 MG/DL (>40); LDL CHOLESTEROL 187.2 MG/DL (<100); NON-HDL-C 253.6 MG/DL; POTASSIUM SERUM 4.7 MMOL/L (3.5-5.1); SODIUM LEVEL 139 MMOL/L (136-145); TOTAL PROTEIN 7.3 G/DL (5.7-8.2); TRIGLYCERIDES LEVEL 332 MG/DL (<150)
== END ==
LOC: M LAB REF 13:12
PROVIDERS: ATTEND Nurse Practitioner Family
DX: E78.5 Hyperlipidemia, unspecified (principal)

== ENCOUNTER → 2024-06-06 | Outpatient (CLI) | payer MEDICARE, MEDICAID | LOC: M RAD 07:51 | PROVIDERS: ATTEND Nurse Practitioner Family | DX: R74.8 Abnormal levels of other serum enzymes (principal) ==

== ENCOUNTER → 2024-07-05 | Outpatient (CLI) | payer MEDICARE, MEDICAID ==
[~2024-07-05] MED LIST changes: +E-Z-GAS II EFFERVESCENT PACKET (SODIUM BICARB./CITRIC ACID/SIMETHICONE) As Ordered ONE; +E-Z-HD 98% w/w 340GM SUSP BTL As Ordered ONE; +E-Z-PAQUE 96% w/w SUSP 176GM BTL As Ordered ONE
== END ==
LOC: M RAD 10:26
PROVIDERS: ATTEND Physician Assistant Medical
DX: R12 Heartburn (principal); Z53.9 Procedure and treatment not carried out, unspecified reason

== ENCOUNTER → 2024-11-08 | Outpatient (REF) | payer MEDICARE, MEDICAID ==
[~2024-11-08] MED LIST changes: -DIPH50CA PO; +DIPH50CA31 PO; -E-Z-GAS II EFFERVESCENT PACKET (SODIUM BICARB./CITRIC ACID/SIMETHICONE) As Ordered ONE; -E-Z-HD 98% w/w 340GM SUSP BTL As Ordered ONE; -E-Z-PAQUE 96% w/w SUSP 176GM BTL As Ordered ONE
[2024-11-08 13:21] LABS: ALT/SGPT 59 U/L (7.0-40); AST/SGOT 29 U/L (<34); CALCIUM LEVEL 9.3 MG/DL (8.5-10.1); CARBON DIOXIDE LEVEL 29 MMOL/L (20-31); CHLORIDE LEVEL 101 MMOL/L (98-107); CHOLESTEROL LEVEL 239 MG/DL (<200); CHOLESTEROL RISK RATIO 5.53 (<5); CREATININE FOR GFR 1.04 MG/DL (0.70-1.30); GLOMERULAR FILTRATION RATE > 90.0 (>60); LDL CHOLESTEROL 139.8 MG/DL (<100); NON-HDL-C 195.8 MG/DL; POTASSIUM SERUM 4.3 MMOL/L (3.5-5.1); SODIUM LEVEL 140 MMOL/L (136-145); TRIGLYCERIDES LEVEL 280 MG/DL (<150)
== END ==
LOC: M LAB REF 11:52
PROVIDERS: ATTEND Student in an Organized Health Care Education/Training Program
DX: E78.5 Hyperlipidemia, unspecified (principal); K76.0 Fatty (change of) liver, not elsewhere classified